=== PATIENT | male | born 1990 | race Hispanic/Latino ===

== ENCOUNTER 2019-08-11 02:12 | Emergency (ER) | payer SELFPAY ==
[~2019-08-11] VITALS: Ht 170.2 cm; Wt 83.9 kg
== END 2019-08-11 02:50 | disposition home or self-care (01) ==
LOC: ED 02:12
PROC: 0HQ1XZZ Repair Face Skin, External Approach (ICD-10-PCS; principal; 2019-08-11)
DX: S01.21XA Laceration without foreign body of nose, initial encounter (principal); S01.81XA Laceration without foreign body of other part of head, initial encounter; Z87.891 Personal history of nicotine dependence; W22.8XXA Striking against or struck by other objects, initial encounter
CPT/HCPCS: 12011; 90471; 90715; 99283-25

== ENCOUNTER 2024-07-07 12:34 | Emergency (ER) | payer SELFPAY ==
[~2024-07-07] VITALS: Ht 170.2 cm; Wt 80.8 kg
[2024-07-07] MEDS ORDERED: LAMOTRIGINE200 MG PO (12:43)
[2024-07-07] MEDS ORDERED: KETAMINE H100 MG/11 INH (12:44)
[2024-07-07 13:09] LABS: BILIRUBIN, URINE NEGATIVE (negative); BLOOD/HGB, URINE TRACE-I (Negative); KETONE, URINE SMALL (Negative); LEUK ESTERASE, URINE NEGATIVE (negative); NITRITE, URINE NEGATIVE (negative)
[2024-07-07 13:16] LABS: BACTERIA, URINE RARE /hpf (negative); CASTS, URINE NONE SEEN \\lpf; CRYSTALS, URINE NONE SEEN (0-1+); EPITHELIAL CELLS, URINE SQUAMOUS 1+ /lpf (0-1+)
[2024-07-07 13:17] LABS: COLLECTION TYPE, URINE CLEAN CATCH; REFLEX CULTURE, URINE No (No)
[2024-07-07] MEDS ORDERED: LORazepam 1 MG TAB PO ONE (13:30)
[2024-07-07 13:39] LABS: AMPHETAMINES, URINE NEGATIVE (NEGATIVE); BARBITURATES, URINE NEGATIVE (NEGATIVE); BENZODIAZEPINE, URINE NEGATIVE (NEGATIVE); BUPRENORPHINE, URINE NEGATIVE (NEGATIVE); CANNABINOID, URINE POSITIVE (NEGATIVE); COCAINE, URINE NEGATIVE (NEGATIVE); ECSTASY, URINE NEGATIVE (NEGATIVE); FENTANYL, URINE NEGATIVE (NEGATIVE); METHADONE, URINE NEGATIVE (NEGATIVE); OPIATES, URINE NEGATIVE (NEGATIVE); OXYCODONE, URINE NEGATIVE (NEGATIVE); PHENCYCLIDINE, URINE NEGATIVE (NEGATIVE)
[2024-07-07 13:42] LABS: BASOPHILS 0.6 % (0-2); EOSINOPHILS 2.6 % (0-6); HEMATOCRIT 47.2 % (35.0-50.0); HEMOGLOBIN 15.9 g/dL (12.0-18.0); LYMPHOCYTES 20.1 % (24-44); MCH 31.7 (27-36); MCHC 33.6 g/dl (30-36); MCV 94.2 fl (81-99); MONOCYTES 7.3 % (0-12); NEUTROPHILS 69.4 % (39-80); PLATELET COUNT 293 K/uL (140-440); RBC 5.01 M/ul (4.3-5.7); RDW 12.8 (10.5-15.0)
[2024-07-07 14:03] LABS: ACETAMINOPHEN 0 ug/mL (10-30); ALBUMIN 4.7 g/dL (3.4-5.0); ALBUMIN/GLOBULIN RATIO 1.42 (1.1-2.4); ALCOHOL, MEDICAL <3 ng/dL (<3); ALKALINE PHOSPHATASE 98 U/L (46-116); ALT (SGPT) 24 U/L (14-59); ANION GAP 16.2 (7-21); AST (SGOT) 15 U/L (15-37); CALCIUM 9.4 mg/dL (8.5-10.1); CARBON DIOXIDE 26 mmol/L (21-32); CHLORIDE 102 mmol/L (98-107); GLOMERULAR FILTRATION RATE,EST 102 mL/min (>60); POTASSIUM 4.2 mmol/L (3.5-5.1); SALICYLATE 0.4 mg/dL (2.8-20.0); TSH, 3RD GENERATION 0.852 uIU/mL (0.358-3.740); UREA NITROGEN 15 mg/dL (7-18)
[2024-07-07] MEDS ORDERED: ATIVAN1 MG PO (14:59)
[2024-07-07] MEDS ORDERED: AMBIEN5 MG PO (14:59)
[2024-07-07 15:10] VITALS: BP 140/98
== END 2024-07-07 15:11 | disposition home or self-care (01) ==
LOC: ED 12:34
PROVIDERS: Emergency Medicine
DX: F41.9 Anxiety disorder, unspecified (principal); Z87.891 Personal history of nicotine dependence; Z79.899 Other long term (current) drug therapy
CPT/HCPCS: 36415; 80053; 80307; 81001; 84443; 85025; 99284; A9270-GY; G0480